=== PATIENT | male | born 1985 | race African-American/Black ===

== ENCOUNTER 2017-05-18 14:54 | Emergency (ER) | payer SELFPAY ==
[2017-05-18 15:13] VITALS: BMI 32.5
[2017-05-18] MEDS ORDERED: morphine CARPU-JECT 4 MG/1 ML DISP.SYRIN IVPUSH ONE (16:00)
--- NOTE | 2017-05-18 16:05 | PDOC ---
History of Present Illness - General History Source: Patient - History of Present Illness Severity: severe Associated Symptoms: reports: nausea/vomiting. denies: fever/chills <Pierce Bowers - Last Filed: 05/19/17 16:29> <Ida Hernandez - Last Filed: 05/20/17 21:11> - General Chief Complaint: Pain Stated Complaint: ABD PAIN Time Seen by Provider: 05/18/17 15:48 Past History - Past Medical History Anemia: Yes Kidney Stones: Yes Suicide Attempt (Hx): No - Immunization History Immunization Up to Date: Yes - Psycho/Social/Smoking Cessation Hx Anxiety: No Suicidal Ideation: No Smoking History: Never smoked Number of Cigarettes Smoked Daily: 10 Cigars Per Day: 0 Information on smoking cessation initiated: No Hx Alcohol Use: Yes Substance Use Type: None <Pierce Bowers - Last Filed: 05/19/17 16:29> <Ida Hernandez - Last Filed: 05/20/17 21:11> - Past Medical History Allergies/Adverse Reactions: Allergies Allergy/AdvReac Type Severity Reaction Status Date / Time No Known Allergies Allergy Verified 05/18/17 15:11 Home Medications: Ambulatory Orders Tramadol HCl/Acetaminophen [Tramadol-Acetaminophn 37.5-325] 1 each PO Q6H PRN # 10 tablet MDD 4 05/18/17 Review of Systems - Review of Systems Constitutional: No: Chills, Fever ABD/GI: Yes: Constipated, Nausea, Vomiting. No: Blood Streaked Bowels, Diarrhea , Rectal Bleeding : No: Dysuria, Discharge <Pierce Bowers - Last Filed: 05/19/17 16:29> *Physical Exam - Vital Signs Last Vital Signs Temp Pulse Resp BP Pulse Ox 98.6 F 97 H 20 154/82 97 05/18/17 15:12 05/18/17 15:12 05/18/17 15:12 05/18/17 15:12 05/18/17 15:12 - Physical Exam General Appearance: Yes: Appropriately Dressed, Severe Distress HEENT: positive: Normal Voice Neck: positive: Supple Respiratory/Chest: negative: Respiratory Distress Gastrointestinal/Abdominal: positive: Tender (to RLQ and mid lower abd w/ guarding), Soft Musculoskeletal: negative: CVA Tenderness Integumentary: positive: Dry, Warm Neurologic: positive: Fully Oriented, Alert, Normal Mood/Affect <Pierce Bowers - Last Filed: 05/19/17 16:29> - Vital Signs Last Vital Signs Temp Pulse Resp BP Pulse Ox 98.1 F 87 18 143/85 99 05/18/17 20:05 05/18/17 20:05 05/18/17 20:05 05/18/17 20:05 05/18/17 20:05 <Ida Hernandez - Last Filed: 05/20/17 21:11> ED Treatment Course - LABORATORY CBC & Chemistry Diagram: 05/18/17 16:45 05/18/17 16:45 - RADIOLOGY Radiology Studies Ordered: Category Date Time Status ABDOMEN & PELVIS CT WITH CONTR [CT] Stat CT Scan 05/18/17 16:00 Ordered <Pierce Bowers - Last Filed: 05/19/17 16:29> - LABORATORY CBC & Chemistry Diagram: 05/18/17 16:45 05/18/17 16:45 - ADDITIONAL ORDERS Additional order review: 05/18/17 16:45 RBC 5.25 MCV 81.8 MCHC 32.0 RDW 14.9 MPV 8.9 D Neutrophils % 56.7 Lymphocytes % 32.8 Monocytes % 7.9 Eosinophils % 1.8 Basophils % 0.8 - Medications Given in the ED: ED Medications Discontinued Medications Generic Name Dose Route Start Last Admin Trade Name Freq PRN Reason Stop Dose Admin Morphine Sulfate 4 mg 05/18/17 16:00 05/18/17 16:54 Morphine Injection - IVPUSH 05/18/17 16:01 4 mg ONCE ONE Administration <Ida Hernandez - Last Filed: 05/20/17 21:11> Medical Decision Making - Medical Decision Making 05/18/17 16:02 31-year-old male history of anemia, 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 Also complaining of numerous episodes of non-bloody, non-bilious nausea, vomiting. Reports that he has also been constipated but that he took [id number] medication with improvement in symptoms. No hematochezia, melena, dysuria, hematuria, penile discharge, fever or chills See exam R/o appy Appears very uncomfortable in ED w/ +ttp to RLQ and mid lower abd, genital exam unremarkable -pain control -zofran -IVF -labs -CT 05/18/17 16:05 05/18/17 19:02 Pt signed out to KENYON Ruff pending CT read <Pierce Bowers - Last Filed: 05/19/17 16:29> *DC/Admit/Observation/Transfer <Pierce Bowers - Last Filed: 05/19/17 16:29> - Attestations Physician Attestion: I reviewed the case with the mid-level practitioner and agree with the mid- level practitioner's assessment, diagnosis and disposition. <Ida Hernandez - Last Filed: 05/20/17 21:11> Diagnosis at time of Disposition: Abdominal fluid collection Abdominal pain Qualifiers: Abdominal location: lower abdomen, unspecified Qualified Code(s): R10.30 - Lower abdominal pain, unspecified - Discharge Dispostion Disposition: HOME - Prescriptions Prescriptions: Tramadol HCl/Acetaminophen [Tramadol-Acetaminophn 37.5-325] 1 each PO Q6H PRN # 10 tablet MDD 4 PRN Reason: Pain - Referrals Referrals: Damon Solis MD [Staff Physician] - Dank Mckenzie MD [Primary Care Provider] - Call tomorrow - Patient Instructions Printed Discharge Instructions: DI for Abdominal Pain-Adult Additional Instructions: You have a fluid collection in your abdomen that was found on CT. It does not appear to be an abscess at this time; however, it does require strict outpatient follow up. Call your primary care doctor tomorrow and follow up with FAY Cali. You were prescribed medication for pain. Take this only when the pain is severe. Do not drive or operate heavy machinery after taking this medication. If you are having constipation, you may take over the counter laxitives such as milk of magnesia or mirlax. Eat a bland diet until your symptoms resolve (no spicy foods, acidic foods). Return to the ED immediately if you have worsening pain, blood in your stool or vomit, fevers, chills, or any changes in your symptoms.
[2017-05-18] MEDS ORDERED: morphine CARPU-JECT 4 MG/1 ML DISP.SYRIN ONE (16:36)
[2017-05-18 17:19] LABS: BASOPHIL 0.8 % (0-2.0); EOSINOPHIL 1.8 % (0-4.5); MCH 26.2 pg (25.7-33.7); MEAN CELL VOLUME 81.8 fl (80-96); MEAN PLT VOLUME 8.9 fl (7.5-11.1); NEUTROPHILS 56.7 % (42.8-82.8); PLATELET COUNT 236 K/MM3 (134-434); RDW 14.9 % (11.9-15.9); WHITE BLOOD COUNT 6.2 K/mm3 (4.0-10.0)
[2017-05-18 17:23] LABS: URINE APPEARANCE CLEAR; URINE BILIRUBIN NEGATIVE (NEGATIVE); URINE BLOOD NEGATIVE (NEGATIVE); URINE COLOR YELLOW; URINE GLUCOSE (UA) NEGATIVE (NEGATIVE); URINE KETONE NEGATIVE (NEGATIVE); URINE LEUK ESTERASE TRACE (NEGATIVE); URINE NITRITE NEGATIVE (NEGATIVE); URINE PROTEIN NEGATIVE (NEGATIVE)
[2017-05-18 17:34] LABS: INR 0.95 (0.82-1.09); PROTHROMBIN TIME (PATIENT) 10.4 SEC (9.98-11.88)
[2017-05-18 17:46] LABS: ALBUMIN 4.2 g/dl (3.4-5.0); ANION GAP 4 (8-16); BILIRUBIN,TOTAL 0.3 mg/dL (0.2-1.0); CALCIUM 9.7 mg/dL (8.5-10.1); CO2 28 mmol/L (21-32); CREATININE 1.1 mg/dL (0.7-1.3); GLUCOSE,RANDOM 93 mg/dL (74-106); SGOT/AST 35 U/L (15-37); SGPT/ALT 43 U/L (12-78); TOT PROT 7.9 g/dl (6.4-8.2)
[2017-05-18 17:47] LABS: ALK PHOS 78 U/L (45-117)
[2017-05-18 18:54] LABS: URINE BACTERIA RARE /hpf (NONE SEEN); URINE MUCUS RARE; URINE RBC 1 /hpf (0-3); URINE WBC 1 /hpf (3-5)
--- NOTE | 2017-05-18 19:07 | PDOC ---
*Physical Exam - Vital Signs Last Vital Signs Temp Pulse Resp BP Pulse Ox 98.6 F 97 H 20 154/82 97 05/18/17 15:12 05/18/17 15:12 05/18/17 15:12 05/18/17 15:12 05/18/17 15:12 ED Treatment Course - LABORATORY CBC & Chemistry Diagram: 05/18/17 16:45 05/18/17 16:45 - ADDITIONAL ORDERS Additional order review: Laboratory Results 05/18/17 05/18/17 05/18/17 16:55 16:45 16:45 INR 0.95 Sodium 142 Potassium 4.2 Chloride 110 H Carbon Dioxide 28 Anion Gap 4 L BUN 13 D Creatinine 1.1 Creat Clearance w eGFR > 60 Random Glucose 93 Calcium 9.7 Total Bilirubin 0.3 D AST 35 D ALT 43 Alkaline Phosphatase 78 Total Protein 7.9 Albumin 4.2 Urine Color Yellow Urine Appearance Clear Urine pH 6.0 Urine Protein Negative Urine Glucose (UA) Negative Urine Ketones Negative Urine Blood Negative Urine Nitrite Negative Urine Bilirubin Negative Urine Urobilinogen 2.0 Ur Leukocyte Esterase Trace 05/18/17 16:45 RBC 5.25 MCV 81.8 MCHC 32.0 RDW 14.9 MPV 8.9 D Neutrophils % 56.7 Lymphocytes % 32.8 Monocytes % 7.9 Eosinophils % 1.8 Basophils % 0.8 - Medications Given in the ED: ED Medications Discontinued Medications Generic Name Dose Route Start Last Admin Trade Name Freq PRN Reason Stop Dose Admin Morphine Sulfate 4 mg 05/18/17 16:00 05/18/17 16:54 Morphine Injection - IVPUSH 05/18/17 16:01 4 mg ONCE ONE Administration Medical Decision Making - Medical Decision Making 05/18/17 19:24 Sign out received from KENYON Bowers. Patient is a 31-year-old male past medical history of kidney stones presents to the emergency department complaining of 3 days of lower abdominal pain. He states that the pain was worse today and that he has been unable to have a bowel movement. States that his belly is distended and his pain is worse. Admits to nausea, anorexia. Denies fevers, chills, weakness, malaise, hematuria, frequency, urgency, melena, hematochezia. Lab work is unremarkable. Awaiting CT abdomen and pelvis results. Pt. is refusing rectal exam at this time. He does not feel it is necessary as he states he has no changes in his bowel movements. Explained reasoning for doing one and he still refuses. 05/18/17 19:53 CT report as dictated by radiology. Impression: Examination of the pelvis demonstrates an oval, well-defined fluid collection within the lower anterior pelvis, slightly superior to the dome of the urinary bladder. This collection measures 4.6 x 2.32.1 cm. Etiology is uncertain. The possibility of an abscess cannot be excluded. The collection is contiguous with the sigmoid colon. Clinical correlation is advised. The collection was not identified on a prior study of 01/27 at 2015. 1. Well-defined fluid collection within the anterior lower pelvis contiguous with the sigmoid colon. The collection is of uncertain etiology. Clinical correlation and follow-up is recommended. 2. No acute pathology within the abdomen or pelvis. Please see above discussion. Will call Dr. Garcia (surgery on-call) for consult. Given pt. level of pain and distended abdomen, could be abscess. 05/18/17 20:[address] Garcia. Thinks less likely that it could be an abscess given lack of fever and white count. Recommends consulting with GI. Will consult Dr. Ca battery container tester [facility]. Since pain is managed will see if we can discharge home with pain control and strict outpatient care. 05/18/17 21:[address] Naranjo, GI. He has also reviewed the report and agrees with outpatient management. Agrees to see the pt in office. Will discharge home at this time with oral pain management. He is to see his PCP and Dr. Naranjo. He is to eat a bland diet and use over the counter laxitives as needed for constipation. Pt. has strict return precautions for hematachezia, blood in the stool, fevers, chills, or any changes in his symptoms. *DC/Admit/Observation/Transfer Diagnosis at time of Disposition: Abdominal fluid collection Abdominal pain Qualifiers: Abdominal location: lower abdomen, unspecified Qualified Code(s): R10.30 - Lower abdominal pain, unspecified - Discharge Dispostion Admit: No - Prescriptions Prescriptions: Tramadol HCl/Acetaminophen [Tramadol-Acetaminophn 37.5-325] 1 each PO Q6H PRN # 10 tablet MDD 4 PRN Reason: Pain - Referrals Referrals: Dank Mckenzie MD [Primary Care Provider] - Call tomorrow Damon Solis MD [Staff Physician] - - Patient Instructions Printed Discharge Instructions: DI for Abdominal Pain-Adult Additional Instructions: You have a fluid collection in your abdomen that was found on CT. It does not appear to be an abscess at this time; however, it does require strict outpatient follow up. Call your primary care doctor tomorrow and follow up with Dr. Naranjo, GI. You were prescribed medication for pain. Take this only when the pain is severe. Do not drive or operate heavy machinery after taking this medication. If you are having constipation, you may take over the counter laxitives such as milk of magnesia or mirlax. Eat a bland diet until your symptoms resolve (no spicy foods, acidic foods). Return to the ED immediately if you have worsening pain, blood in your stool or vomit, fevers, chills, or any changes in your symptoms.
[2017-05-18 20:06] VITALS: BP 143/85; PULSE 87; TEMP 98.1
== END 2017-05-18 21:31 | disposition home or self-care (01) ==
LOC: JER 14:54
PROC: 3E033NZ Introduction of Analgesics, Hypnotics, Sedatives into Peripheral Vein, Percutaneous Approach (ICD-10-PCS; principal; 2017-05-18)
DX: R10.30 Lower abdominal pain, unspecified (principal)
CPT/HCPCS: 36415; 74177-TC; 80053; 81003; 81015; 85025; 85610; 86850; 86900; 86901; 99283-25

== ENCOUNTER 2017-08-13 13:52 | Emergency (ER) | payer OTHER ==
[2017-08-13 13:58] VITALS: BP 137/62; PULSE 116; TEMP 98.4; BMI 32.3
--- NOTE | 2017-08-13 14:25 | PDOC ---
History of Present Illness - General Chief Complaint: Pain Stated Complaint: FLUID IN STOMACH Time Seen by Provider: 08/13/17 14:12 History Source: Patient - History of Present Illness Quality: reports: other Abdominal Pain Onset Location: reports: other (lower abd) Past History - Past Medical History Allergies/Adverse Reactions: Allergies Allergy/AdvReac Type Severity Reaction Status Date / Time No Known Allergies Allergy Verified 08/13/17 13:57 Home Medications: Ambulatory Orders Tramadol HCl/Acetaminophen [Tramadol-Acetaminophn 37.5-325] 1 each PO Q6H PRN # 10 tablet MDD 4 05/18/17 Anemia: Yes Asthma: Yes Kidney Stones: Yes - Immunization History Immunization Up to Date: Yes - Suicide/Smoking/Psychosocial Hx Smoking History: Current every day smoker Number of Cigarettes Smoked Daily: 3 Cigars Per Day: 0 Information on smoking cessation initiated: Yes 'Breaking Loose' booklet given: 08/13/17 Hx Alcohol Use: No Drug/Substance Use Hx: No Substance Use Type: None Abd/GI Specific PMHX - Complaint Specific PMHX Colitis: No Diverticulitis: No Gall Bladder Disease: No GERD: No Hepatitis: No Irritable Bowel Synd (IBS): No Pancreatitis: No GI Ulcer Disease: No Review of Systems - Review of Systems Constitutional: No: Chills, Fever, Unintentional Wgt. Loss ABD/GI: No: Blood Streaked Bowels, Diarrhea, Nausea, Vomiting, Tarry Stools : No: Dysuria, Flank Pain, Hematuria *Physical Exam - Vital Signs Last Vital Signs Temp Pulse Resp BP Pulse Ox 98.4 F 116 H 20 137/62 99 08/13/17 13:53 08/13/17 13:53 08/13/17 13:53 08/13/17 13:53 08/13/17 13:53 - Physical Exam General Appearance: Yes: Appropriately Dressed. No: Apparent Distress HEENT: positive: Normal Voice Neck: positive: Supple Respiratory/Chest: negative: Respiratory Distress Gastrointestinal/Abdominal: positive: Normal Bowel Sounds, Soft. negative: Tender, Distended, Guarding, Rebound Musculoskeletal: negative: CVA Tenderness Integumentary: positive: Dry, Warm Neurologic: positive: Fully Oriented, Alert, Normal Mood/Affect Medical Decision Making - Medical Decision Making 08/13/17 14:25 31-year-old M, h/o anemia, traumatic L kidney injury as a child, was seen in the ER ~ 3 months ago for lower abdominal pain. Had negative labs and a CT abdomen/pelvis, which showed a 4 x 2 x 2 cm well-defined fluid collection contiguous with the sigmoid colon of unclear etiology, but did not appear to be an abscess. Patient was discharged with GI follow-up w/ Dr Wayne. Patient returns today because states every time he makes an appointment with Michael, his appointment gets rescheduled. Admits that pain has not worsened and no development of new symptoms such as nausea, vomiting, change in bowel movements , BRBPR, melena, fever, chills or unexplained weight loss. Patient well- appearing and stable in ED, currently lying on stretcher and texting on cell phone. Abdomen benign. No repeat workup warranted at this time in ED. Patient discharged with additional GI MDs to follow-up with. Reasons to return to ER discussed with patient 08/13/17 14:31 *DC/Admit/Observation/Transfer Diagnosis at time of Disposition: Abdominal pain Qualifiers: Abdominal location: lower abdomen, unspecified Qualified Code(s): R10.30 - Lower abdominal pain, unspecified - Discharge Dispostion Disposition: HOME Condition at time of disposition: Good - Referrals Referrals: Andria Mckenzie [Primary Care Provider] - Reese Chambers MD [Staff Physician] - Chucky Amaya MD [Staff Physician] - - Patient Instructions Additional Instructions: Please follow up with Dr Chambers or Dr Amaya of GI You will need to follow up with GI for further evaluation of your abdominal pain. Copy of your last CT report was given to you. In the meantime take Motrin or Tylenol as needed
== END 2017-08-13 14:27 | disposition home or self-care (01) ==
LOC: JER 13:52
DX: R10.30 Lower abdominal pain, unspecified (principal); J45.909 Unspecified asthma, uncomplicated; Z87.442 Personal history of urinary calculi; F17.210 Nicotine dependence, cigarettes, uncomplicated
CPT/HCPCS: 99282-25

== ENCOUNTER 2017-08-23 10:56 | Day surgery (SDC) | payer OTHER ==
[2017-08-22 16:34] VITALS: BMI 32.3
[2017-08-23] MEDS ORDERED: PROPOFOL 20 ML ONE ×2 (13:04)
[2017-08-23 13:36] VITALS: TEMP 98.4
[2017-08-23 14:05] VITALS: PULSE 73
[2017-08-23 14:21] VITALS: BP 119/77
== END 2017-08-23 14:29 | disposition home or self-care (01) ==
LOC: JASU-ENDO 10:56
PROVIDERS: ATTEND Internal Medicine Gastroenterology
PROC: 0DJD8ZZ Inspection of Lower Intestinal Tract, Via Natural or Artificial Opening Endoscopic (ICD-10-PCS; principal; 2017-08-23 11:30)
DX: K59.00 Constipation, unspecified (principal)

== ENCOUNTER 2018-02-21 11:12 | Emergency (ER) | payer OTHER ==
[2018-02-21 11:18] VITALS: BP 145/82; PULSE 97; TEMP 97.5; BMI 32.0
[2018-02-21] MEDS ORDERED: ONDANSETRON 4 MG/2 ML VIAL IVPUSH ONE (12:00)
[2018-02-21] MEDS ORDERED: morphine CARPU-JECT 2 MG/1 ML DISP.SYRIN IVPUSH ONE (12:00)
[2018-02-21] MEDS ORDERED: SODIUM CHLORIDE 1,000 ML IV STA (12:00)
[2018-02-21 12:04] LABS: URINE APPEARANCE CLEAR; URINE BILIRUBIN NEGATIVE (<2.0 mg/dL); URINE BLOOD NEGATIVE (NEGATIVE); URINE COLOR YELLOW; URINE GLUCOSE (UA) NEGATIVE (NEGATIVE); URINE KETONE NEGATIVE (NEGATIVE); URINE LEUK ESTERASE TRACE (NEGATIVE); URINE NITRITE NEGATIVE (NEGATIVE); URINE PROTEIN NEGATIVE (NEGATIVE); URINE UROBILINOGEN 4.0 E.U/dl mg/dL (0.2-1.0)
[2018-02-21] MEDS ORDERED: morphine SULFATE 4 MG/ML VIAL ONE (12:05)
[2018-02-21] MEDS ORDERED: ONDANSETRON 4 MG/2 ML VIAL ONE (12:06)
[2018-02-21 12:10] LABS: EPI CELLS RARE /HPF (FEW); URINE BACTERIA RARE /hpf (NONE SEEN); URINE MUCUS RARE
[2018-02-21 12:33] LABS: BASO % 0.2 % (0-2.0); EOS % 0.4 % (0-4.5); HEMATOCRIT 44.8 % (35.4-49); HEMOGLOBIN 14.5 GM/dL (11.7-16.9); LYMPH % 13.9 % (8-40); MCH 26.8 pg (25.7-33.7); MCHC 32.4 g/dl (32.0-35.9); MEAN CELL VOLUME 82.6 fl (80-96); MEAN PLT VOLUME 8.1 fl (7.5-11.1); MONO % 8.4 % (3.8-10.2); NEUT % 77.1 % (42.8-82.8); PLATELET COUNT 288 K/MM3 (134-434); RBC 5.42 M/mm3 (4.00-5.60); RDW 14.5 % (11.9-15.9); WHITE BLOOD COUNT 9.8 K/mm3 (4.0-10.0)
--- NOTE | 2018-02-21 12:35 | PDOC ---
History of Present Illness - General Chief Complaint: Pain, Acute Stated Complaint: ABD PAIN Time Seen by Provider: 02/21/18 11:31 History Source: Patient Exam Limitations: No Limitations - History of Present Illness Travel History: No Initial Comments: 02/21/18 12:51 32-year-old male presents with past medical history of renal colic and "fluid in my stomach" presents to the ED with sudden onset of sharp lower abdominal pain which she describes a bursting feeling accompanied with nausea vomiting diarrhea since onset at 4 AM this morning. Patient states had Herrera's around 1 AM and when he woke at 4 AM with the pain began to vomit. Particles. Patient denies bloody stool, bloody vomit, fever, chills, recent change in activity but states pain does radiate to his suprapubic and testicles. Timing/Duration: reports: constant, getting worse Quality: reports: moderate, cramping, sharpness Abdominal Pain Onset Location: reports: periumbilical, suprapubic Pain Radiation: reports: groin Activities at Onset: reports: none Aggravating Factors: improves with: None Alleviating Factors: improves with: None Past History - Travel Traveled outside of the country in the last 30 days: No - Past Medical History Allergies/Adverse Reactions: Allergies Allergy/AdvReac Type Severity Reaction Status Date / Time No Known Allergies Allergy Verified 02/21/18 11:15 Home Medications: Ambulatory Orders NK [No Known Home Medication] 02/21/18 Anemia: Yes Asthma: Yes COPD: No GI Disorders: Yes (ABD. PAIN, CONSTIPATION) Kidney Stones: Yes - Immunization History Immunization Up to Date: Yes - Suicide/Smoking/Psychosocial Hx Smoking History: Current every day smoker Have you smoked in the past 12 months: Yes Number of Cigarettes Smoked Daily: 5 If you are a former smoker, when did you quit?: 2015 Cigars Per Day: 0 Information on smoking cessation initiated: No 'Breaking Loose' booklet given: 08/13/17 Hx Alcohol Use: No Drug/Substance Use Hx: No Substance Use Type: None Patient Lives Alone: No Lives with/in: spouse/SO Abd/GI Specific PMHX - Complaint Specific PMHX Colitis: No Diverticulitis: No Gall Bladder Disease: No GERD: No Hepatitis: No Irritable Bowel Synd (IBS): No Pancreatitis: No GI Ulcer Disease: No Review of Systems - Review of Systems Able to Perform ROS?: No Constitutional: No: Symptoms Reported HEENTM: No: Symptoms Reported Respiratory: No: Symptoms reported Cardiac (ROS): No: Symptoms Reported ABD/GI: Yes: Abdominal Distended, Diarrhea, Nausea, Vomiting, Abdominal cramping : No: Symptoms Reported Musculoskeletal: No: Symptoms Reported Integumentary: No: Symptoms Reported Neurological: No: Symptoms reported Endocrine: No: Symptoms Reported Hematologic/Lymphatic: No: Symptoms Reported *Physical Exam - Vital Signs Last Vital Signs Temp Pulse Resp BP Pulse Ox 97.5 F L 97 H 15 145/82 100 02/21/18 11:15 02/21/18 11:15 02/21/18 11:15 02/21/18 11:15 02/21/18 11:15 - Physical Exam General Appearance: Yes: Nourished, Appropriately Dressed, Mild Distress Neck: positive: Supple Respiratory/Chest: positive: Lungs Clear, Normal Breath Sounds. negative: Respiratory Distress, Accessory Muscle Use Cardiovascular: positive: Regular Rhythm, Regular Rate. negative: Murmur Gastrointestinal/Abdominal: positive: Soft, Decreased BS (upper quadrants), Distended (lower abdomen), Guarding, Rebound, Tenderness (lower abdomen) Male Genitalia: positive: testicular tenderness (mild bilateral). negative: testicular mass, inguinal hernia Musculoskeletal: negative: CVA Tenderness Extremity: positive: Normal Capillary Refill. negative: Pedal Edema Integumentary: positive: Normal Color, Warm, Moist ED Treatment Course - LABORATORY CBC & Chemistry Diagram: 02/21/18 12:15 02/21/18 12:15 - ADDITIONAL ORDERS Additional order review: Laboratory Results 02/21/18 11:55 Urine Color Yellow Urine Appearance Clear Urine pH 8.0 D Ur Specific [place] 1.021 Urine Protein Negative Urine Glucose (UA) Negative Urine Ketones Negative Urine Blood Negative Urine Nitrite Negative Urine Bilirubin Negative Urine Urobilinogen 4.0 e.u/dl Ur Leukocyte Esterase Trace Urine WBC (Auto) 41 Urine RBC (Auto) 1 Ur Epithelial Cells Rare Urine Bacteria Rare Urine Mucus Rare - RADIOLOGY Radiology Studies Ordered: Category Date Time Status ABDOMEN & PELVIS CT WITH CONTR [CT] Stat CT Scan 02/21/18 12:00 Ordered Medical Decision Making - Medical Decision Making 02/21/18 12:07 Patient here for evaluation of sudden onset of lower abdominal pain accompanied with nausea vomiting diarrhea. Patient exam did have abdominal distention with tenderness to the lower abdomen concerning for perforation of the abdomen versus abscess versus obstruction. Patient states had a fluid collection in his "sigmoid colon " was supposed to have a colonoscopy for but was unable to have it done and was supposed to be rescheduled for October but did not follow-up with Dr. Chambers and he states was asymptomatic. Pt ordered for labs, IV fluids, antiemetics, analgesics, and abdominal CT with contrast. 02/21/18 16:01 Laboratory Tests 02/21/18 02/21/18 02/21/18 11:55 12:15 12:15 WBC 9.8 D Hgb 14.5 Hct 44.8 Neutrophils % 77.1 Sodium 140 Potassium 5.0 D Chloride 105 Carbon Dioxide 25 Anion Gap 10 BUN 12 D Creatinine 1.1 Random Glucose 100 Calcium 9.7 Total Bilirubin 0.7 D AST 29 D ALT 26 D Alkaline Phosphatase 71 Total Protein 8.7 H Albumin 4.6 Ur Leukocyte Esterase Trace Urine WBC (Auto) 41 urine cx sent. Pt has no urinary/penile complaints nor + findings on exam. CT of the abdomen shows thickening of the descending and proximal sigmoid colon wall suggestive of colitis, inflammatory versus infectious. No extravasation or of air or abscess formation identified. Previously visualized small collection in the lower pelvis anteriorly is no longer seen. L4-L5 mild to moderate central bulge disc protrusion again seen deforming the thecal sac and probably impinging both L5 nerve roots. Normal size prostate gland. Perirectal and pericecal fat are clear. Pt having a Herrera's vanilla shake presently with no complaints. Patient will be discharged home to follow up with GI as previously discussed. *DC/Admit/Observation/Transfer Diagnosis at time of Disposition: Abdominal pain - Discharge Dispostion Disposition: HOME Condition at time of disposition: Improved - Referrals Referrals: Jae Mckenzie MD [Primary Care Provider] - - Patient Instructions Printed Discharge Instructions: DI for Ulcerative Colitis Additional Instructions: At this time the CT showed colitis and the fluid collection in your pelvis is not present any more. I do want you to follow up with Dr. Chambers as previously scheduled as discussed. - Post Discharge Activity
[2018-02-21 13:02] LABS: ALBUMIN 4.6 g/dl (3.4-5.0); ANION GAP 10 (8-16); BLOOD UREA NITROGEN 12 mg/dL (7-18); CALCIUM 9.7 mg/dL (8.5-10.1); CHLORIDE 105 mmol/L (98-107); CO2 25 mmol/L (21-32); CREATININE 1.1 mg/dL (0.7-1.3); GLUCOSE,RANDOM 100 mg/dL (74-106); SGPT/ALT 26 U/L (12-78); SODIUM 140 mmol/L (136-145)
[2018-02-21 13:04] LABS: ALK PHOS 71 U/L (45-117); BILIRUBIN,TOTAL 0.7 mg/dL (0.2-1.0); TOT PROT 8.7 g/dl (6.4-8.2)
[2018-02-21 13:06] LABS: SGOT/AST 29 U/L (15-37)
== END 2018-02-21 16:10 | disposition home or self-care (01) ==
LOC: JER 11:12
PROC: 3E033NZ Introduction of Analgesics, Hypnotics, Sedatives into Peripheral Vein, Percutaneous Approach (ICD-10-PCS; principal; 2018-02-21)
PROC: 3E033GC Introduction of Other Therapeutic Substance into Peripheral Vein, Percutaneous Approach (ICD-10-PCS; 2018-02-21)
PROC: 3E0337Z Introduction of Electrolytic and Water Balance Substance into Peripheral Vein, Percutaneous Approach (ICD-10-PCS; 2018-02-21)
DX: R10.30 Lower abdominal pain, unspecified (principal); F17.210 Nicotine dependence, cigarettes, uncomplicated; J45.909 Unspecified asthma, uncomplicated; Z87.442 Personal history of urinary calculi
CPT/HCPCS: 36415; 74177-TC; 80053; 81003; 81015; 85025; 87086; 96361; 96374; 96375; 99282-25; J7030

== ENCOUNTER 2024-07-14 11:45 | Emergency (ER) | payer OTHER ==
[2024-07-14 11:53] VITALS: BP 136/88; PULSE 95; RESP 20; TEMP 97.8; BMI 35.5
[2024-07-14] MEDS ORDERED: KETOROLAC TROMETHAMINE 15 MG/ML VIAL ONE (13:23)
[2024-07-14] MEDS ORDERED: MAG HYDROX/AL HYDROX/SIMETH 30 ML UNIT-DOSE CUP ONE (13:23)
[2024-07-14] MEDS ORDERED: FAMOTIDINE 20 MG TABLET ONE (13:23)
[2024-07-14] MEDS: KETOROLAC TROMETHAMINE 15 MG/ML VIAL IVPUSH ONE (13:47)
[2024-07-14] MEDS: FAMOTIDINE 20 MG TABLET PO ONE (13:47)
[2024-07-14] MEDS: MAG HYDROX/AL HYDROX/SIMETH 30 ML UNIT-DOSE CUP PO ONE (13:47)
[2024-07-14] MEDS: SODIUM CHLORIDE 0.9% 500 ML INFUS.BAG IV ONE (13:47)
[2024-07-14 13:57] LABS: BASO % 1.1 % (0-2.0); EOS % 2.6 % (0-4.5); HEMATOCRIT 41.6 % (35.4-49); HEMOGLOBIN 13.3 GM/dL (11.7-16.9); LYMPH % 39.1 % (8-40); MCH 27.3 pg (25.7-33.7); MEAN PLT VOLUME 8.1 fl (7.5-11.1); MONO % 6.9 % (3.8-10.2); NEUT % 50.3 % (42.8-82.8); PLATELET COUNT 249 10^3/uL (134-434); RDW 15.1 % (11.9-15.9); WHITE BLOOD COUNT 5.9 K/mm3 (4.0-10.0)
[2024-07-14 14:12] LABS: POTASSIUM 4.5 mmol/L (3.5-5.1)
[2024-07-14 14:16] LABS: CALCIUM 9.1 mg/dL (8.5-10.1)
[2024-07-14 14:17] LABS: ALBUMIN 3.9 g/dl (3.4-5.0); BLOOD UREA NITROGEN 6.9 mg/dL (7-18)
[2024-07-14 14:20] LABS: CREATININE 1.1 mg/dL (0.55-1.3)
[2024-07-14 14:21] LABS: BILIRUBIN,TOTAL 0.6 mg/dL (0.2-1); TOT PROT 7.7 g/dl (6.4-8.2)
== END 2024-07-14 15:10 | disposition home or self-care (01) ==
LOC: JER 11:45
PROC: 3E0333Z Introduction of Anti-inflammatory into Peripheral Vein, Percutaneous Approach (ICD-10-PCS; principal; 2024-07-14)
DX: R10.10 Upper abdominal pain, unspecified (principal); R11.0 Nausea
CPT/HCPCS: 36415; 80053; 83690; 85025; 99284-25